=== PATIENT | male | born 1970 | race African-American/Black ===

== ENCOUNTER 2019-11-21 19:58 | Emergency (ER) | payer OTHER ==
[~2019-11-21] VITALS: Ht 182.9 cm; Wt 99.8 kg
[2019-11-21] MEDS ORDERED: SODIUM CHLORIDE 0.9% 3,000 ML IV ONE (21:15)
[2019-11-21] MEDS ORDERED: ONDANSETRON HCL 4 MG/2 ML VIAL IV ONE (21:15)
[2019-11-21] MEDS ORDERED: cefTRIAXone 1GM/50ML D5W 50 ML IV ONE ×2 (21:15→22:45)
[2019-11-21] MEDS ORDERED: PANTOPRAZOLE 40 MG/10 ML VIAL INJ IV ONE (21:15)
[2019-11-21] MEDS ORDERED: MORPHINE SULFATE 4 MG/ML SYR/VIAL IV ONE (21:15)
[2019-11-21] MEDS ORDERED: DEXTROSE (50%) 50ML SYRG IV ONE (21:15)
[2019-11-21 21:59] LABS: Basophils # (auto) 0 10 ^3/uL (0-0.2); Eosinophils # (auto) 0 10 ^3/uL (0-0.8); Eosinophils % (auto) 0.1 % (0.0-7.0); Hemoglobin 19.4 g/dL (13.5-17.5); Lymphocytes # (auto) 0.7 10 ^3/uL (0.4-5.4); Monocytes # (auto) 1.5 10 ^3/uL (0-1.3); Nucleated Red Blood Cells % 0.1 %
[2019-11-21 22:02] LABS: Basophils % (auto) 0.2 % (0.0-2.0); Lymphocytes % (auto) 4.3 % (10.0-50.0); Mean Corpuscular Hemoglobin 33.2 pg (28.0-32.0); Mean Corpuscular Hgb Conc. 33.1 g/dL (32.0-36.0); Mean Corpuscular Volume 100.3 fL (80.0-100.0); Monocytes % (auto) 8.6 % (0.0-12.0); Neutrophils % (auto) 86.8 % (37.0-80.0); Platelet Count (auto) 121 10^3/uL (140-450); Red Blood Cells 5.84 10^6/uL (4.5-5.90); Red Cell Distribution Width 15.6 % (11.8-14.3); White Blood Cell 17.3 10^3/uL (4.4-10.8)
[2019-11-21 22:07] LABS: Hematocrit 58.6 % (41.0-53.0)
[2019-11-21 22:22] LABS: INR 1.95 (0.9-1.15); Partial Thromboplastin Time 31.9 sec (23.64-32.05)
[2019-11-21 22:28] LABS: Lactic Acid w/Reflex 14.9 mmol/L (0.4-2.0)
[2019-11-21 22:31] LABS: Albumin 3.6 g/dL (3.4-5.0); Calcium 9.6 mg/dL (8.5-10.1); Potassium 4.6 mmol/L (3.5-5.1)
[2019-11-21 22:35] LABS: BUN/Creatinine Ratio 6.3; Bilirubin, Total 1.4 mg/dL (0.2-1.0)
[2019-11-21] MEDS ORDERED: DexAMETHasone SOD PHOS 10MG/1ML VIAL INJ ONE (22:41)
[2019-11-21] MEDS ORDERED: CLINDAMYCIN 900MG IV 50 ML IV ONE (22:45)
[2019-11-21] MEDS ORDERED: CLINDAMYCIN 600MG IV 50 ML IV ONE (22:51)
[2019-11-21] MEDS ORDERED: CLINDAMYCIN 300MG IV 50 ML IV ONE (22:51)
[2019-11-21] MEDS ORDERED: DexAMETHasone SOD PHOS 10MG/1ML VIAL INJ IV ONE (23:00)
[2019-11-21] MEDS ORDERED: SUCCINYLCHOLINE CHLORIDE 20 MG/ML 10ML VIAL IV ONE ×2 (23:26→23:30)
[2019-11-21] MEDS ORDERED: MIDAZOLAM DRIP 50 mg/50mL 50 ML IV SCH ×2 (23:26→23:50)
[2019-11-21] MEDS ORDERED: NOREPINEPHRINE 8 MG/250ML KIT 250 ML IV SCH (23:26)
[2019-11-21] MEDS ORDERED: ETOMIDATE (2MG/ML) 20ML VIAL IV ONE ×2 (23:27→23:30)
[2019-11-21] MEDS ORDERED: MIDAZOLAM DRIP 50 mg/50mL 50 ML IV ONE (23:36)
[2019-11-22 00:08] VITALS: BP 114/69
[2019-11-22 00:32] LABS: Urine Amorphous Crystal MOD /hpf (None Seen); Urine Bacteria MOD /hpf (None Seen); Urine Blood 3+ /uL (Negative); Urine Specific Gravity 1.018 (1.001-1.035); Urine WBC 17 /hpf (0 - 3)
== END 2019-11-22 00:36 | disposition short-term general hospital (02) ==
LOC: EDBD 19:58 → ER 20:00
DX: I62.9 Nontraumatic intracranial hemorrhage, unspecified (principal); I60.9 Nontraumatic subarachnoid hemorrhage, unspecified; D72.829 Elevated white blood cell count, unspecified; K92.2 Gastrointestinal hemorrhage, unspecified; F17.210 Nicotine dependence, cigarettes, uncomplicated
CPT/HCPCS: 31500; 36415; 36600; 70450; 71045; 74176; 80053; 81001; 82805; 82962; 83605; 85025; 85610; 85730; 86850; 86900; 86901; 87040; 87070; 87205; 93005; 96365; 96367; 96375; 99291; C9113; J0330; J0696; J1100; J2250; J2270; J2405; J3490; J7030; J7042; 94002; A4565